=== PATIENT | male | born 1985 | race African-American/Black ===

== ENCOUNTER 2017-11-25 23:45 | Emergency (ER) | payer MEDICAID ==
[~2017-11-25] VITALS: Ht 177.8 cm; Wt 100.0 kg
[2017-11-26] MEDS ORDERED: TETRACAINE 0.5% OPHTH DROPS 4ML OP ONE (03:15)
[2017-11-26] MEDS ORDERED: FLUORESCEIN SODIUM 1MG/STRIP OP ONE (03:15)
[2017-11-26] MEDS ORDERED: PHENYLEPHRINE/CYCLOPENT 0.2-1% OPHTH DROPS 2ML RIGHTEYE ONE (03:30)
[2017-11-26 03:40] VITALS: BP 138/89
== END 2017-11-26 04:45 | disposition home or self-care (01) ==
LOC: ER 23:45
DX: H53.141 Visual discomfort, right eye (principal); I10 Essential (primary) hypertension; F17.200 Nicotine dependence, unspecified, uncomplicated
CPT/HCPCS: 99283